=== PATIENT | male | born 1975 | race African-American/Black ===

== ENCOUNTER 2022-03-05 20:42 | Emergency (ER) | payer SELFPAY ==
[~2022-03-05] VITALS: Ht 170.2 cm; Wt 58.2 kg
[2022-03-05 21:03] VITALS: BP 128/89
[2022-03-05] MEDS ORDERED: NAPR-681 PO (22:29)
[2022-03-05] MEDS ORDERED: HYDR-4001 PO (22:29)
[2022-03-05] MEDS ORDERED: AMOX1TAB16 MT (22:29)
== END 2022-03-05 23:11 | disposition home or self-care (01) ==
LOC: ER 20:42
DX: K02.9 Dental caries, unspecified (principal); K04.7 Periapical abscess without sinus
CPT/HCPCS: 99283